=== PATIENT | female | born 1960 | race African-American/Black ===

== ENCOUNTER 2017-11-15 05:01 | Emergency (ER) | payer MEDICAID, OTHER ==
[~2017-11-15] VITALS: Ht 167.6 cm; Wt 62.0 kg
[2017-11-15] MEDS ORDERED: ONDANSETRON HCL 4MG/2ML INJ IV STA (06:31)
[2017-11-15] MEDS ORDERED: MORPHINE SULFATE 4 MG/ML CPJ (NOT FOR IM USE) IV STA (06:31)
[2017-11-15] MEDS ORDERED: SODIUM CHLORIDE 0.9% 1,000 ML IV ONE (06:31)
[2017-11-15 08:15] LABS: BASOPHILS % 0.5 % (0.0-2.0); EOSINOPHILS % 1.3 % (0.0-5.0); HEMATOCRIT. 36.4 % (36.0-48.0); LYMPHOCYTES % 41.5 % (20.0-50.0); MEAN CORPUSCULAR HEMOGLOBIN 30.8 pg (28.0-32.0); MEAN CORPUSCULAR VOLUME 93.4 fL (81.0-99.0); MEAN PLATELET VOLUME 7.6 fl (7.4-10.4); MONOCYTES % 10.1 % (2.0-8.0); NEUTROPHILS % 46.6 % (40.0-76.0); PLATELET 193 x1000/uL (130-400); RED CELL DISTRIBUTION WIDTH 13.8 % (11.6-14.6)
[2017-11-15 08:18] LABS: CHLORIDE 105 mEq/L (98-107)
[2017-11-15] MEDS ORDERED: KETOROLAC 30MG/ML VIAL IV ONE (10:30)
[2017-11-15 11:32] VITALS: BP 108/68
== END 2017-11-15 11:36 | disposition home or self-care (01) ==
LOC: ER 05:01
DX: M54.5 Low back pain (principal); M79.672 Pain in left foot; W01.0XXA Fall on same level from slipping, tripping and stumbling without subsequent striking against object, initial encounter; Y93.89 Activity, other specified; Y92.89 Other specified places as the place of occurrence of the external cause; Y99.8 Other external cause status
CPT/HCPCS: 36415; 70450; 71260; 72125; 72131; 73030; 73650; 74177; 80053; 85025; 96374; 96375; 99285; J1885; J2270; J2405; J7030; Z7610

== ENCOUNTER 2019-09-05 01:12 | Emergency (ER) | payer MEDICAID ==
[~2019-09-05] VITALS: Ht 162.6 cm; Wt 66.0 kg
[2019-09-05] MEDS ORDERED: HYDROCODONE/ACETAMINOPHEN 5/325MG TABLET PO ONE (02:00)
[2019-09-05] MEDS ORDERED: CYCLOBENZAPRINE 10MG TABLET PO ONE (02:00)
[2019-09-05] MEDS ORDERED: SODIUM CHLORIDE 0.9% 1,000 ML IV ONE (02:54)
[2019-09-05 03:10] LABS: BASOPHILS % 0.7 % (0.0-2.0); EOSINOPHILS % 2.3 % (0.0-5.0); HEMATOCRIT. 35.4 % (36.0-48.0); HEMOGLOBIN. 11.6 g/dL (12.0-16.0); LYMPHOCYTES % 48.5 % (20.0-50.0); MEAN CORPUSCULAR HEMOGLOBIN 30.3 pg (28.0-32.0); MEAN CORPUSCULAR VOLUME 92.2 fL (81.0-99.0); MEAN PLATELET VOLUME 7.5 fl (7.4-10.4); NEUTROPHILS % 41.5 % (40.0-76.0); PLATELET 257 x1000/uL (130-400); RED BLOOD CELL COUNT 3.84 mill/uL (4.2-5.4); RED CELL DISTRIBUTION WIDTH 13.2 % (11.6-14.6)
[2019-09-05 03:11] LABS: CHLORIDE 106 mEq/L (98-107)
[2019-09-05] MEDS ORDERED: IOHEXOL-300 100 ML BOTTLE ONE (07:26)
[2019-09-05 08:03] VITALS: BP 122/74
== END 2019-09-05 08:38 | disposition short-term general hospital (02) ==
LOC: ER 01:12
DX: S39.81XA Other specified injuries of abdomen, initial encounter (principal); M25.552 Pain in left hip; Z88.2 Allergy status to sulfonamides; Z85.3 Personal history of malignant neoplasm of breast; V43.52XA Car driver injured in collision with other type car in traffic accident, initial encounter; Y93.89 Activity, other specified; Y92.488 Other paved roadways as the place of occurrence of the external cause
CPT/HCPCS: 36415; 71045; 72170; 74176; 74177; 80048; 85025; 99285; J7030; Q9967

== ENCOUNTER 2024-08-07 22:49 | Emergency (ER) | payer MEDICARE, MEDICAID ==
[~2024-08-07] VITALS: Ht 170.2 cm; Wt 68.0 kg
[2024-08-07 22:51] VITALS: TEMP 36.7; O2SAT 99
[2024-08-07] MEDS: IBUPROFEN 400MG TABLET PO ONE (23:51)
[2024-08-08 01:35] VITALS: TEMP 98
[2024-08-08] MEDS: ACETAMINOPHEN 325MG TABLET PO ONE (01:35)
[2024-08-08] MEDS ORDERED: IBUP-2028 MT (01:37)
[2024-08-08 02:47] VITALS: BP 157/67; PULSE 59; RESP 14; O2SAT 99
== END 2024-08-08 02:59 | disposition home or self-care (01) ==
LOC: ER 22:49
DX: S00.83XA Contusion of other part of head, initial encounter (principal); S00.81XA Abrasion of other part of head, initial encounter; M79.671 Pain in right foot; M79.672 Pain in left foot; Z88.2 Allergy status to sulfonamides; W01.0XXA Fall on same level from slipping, tripping and stumbling without subsequent striking against object, initial encounter; Y93.01 Activity, walking, marching and hiking; Y92.480 Sidewalk as the place of occurrence of the external cause; Y99.8 Other external cause status
CPT/HCPCS: 73630; 99284